=== PATIENT | male | born 1980 | race Caucasian/White ===

== ENCOUNTER 2023-04-13 05:11 | Emergency (ER) | payer MEDICAID, SELFPAY ==
[2023-04-13 05:19] VITALS: BP 119/75; PULSE 54; RESP 16; TEMP 36.6; O2SAT 98; BMI 21.7
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
[2023-04-13] MEDS: lidocaine 1% INJ 10 mL (per mL) 20 ML INJECTION (05:50)
[2023-04-13 06:53] VITALS: BP 115/79; O2SAT 100
[2023-04-13 07:44] VITALS: BP 114/75; O2SAT 100
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
[2023-04-13 08:58] VITALS: BP 112/68; PULSE 88; RESP 18; O2SAT 94
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
== END 2023-04-13 18:11 | disposition home or self-care (01) ==
PROVIDERS: Emergency Provider Family Medicine
DX: S01.312A Laceration without foreign body of left ear, initial encounter (principal); S22.42XA Multiple fractures of ribs, left side, initial encounter for closed fracture; S09.90XA Unspecified injury of head, initial encounter; Y04.2XXA Assault by strike against or bumped into by another person, initial encounter; Y92.143 Cell of prison as the place of occurrence of the external cause
CPT/HCPCS: 12013; 70450; 71101; 72072; 72100; 99284

== ENCOUNTER 2023-05-04 09:20 | Emergency (ER) | payer MEDICAID, SELFPAY ==
[2023-05-04 09:30] VITALS: BP 109/68; PULSE 75; RESP 16; O2SAT 100
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
[2023-05-04 09:41] VITALS: BP 109/68; PULSE 75; RESP 16; O2SAT 100
--- NOTE | 2023-05-11 14:18 | DCPLANNER ---
manager ob was triggered to call patient due to no primary care physician - no number on file.
== END 2023-05-04 09:42 | disposition home or self-care (01) ==
PROVIDERS: Emergency Provider Family Medicine
DX: Z48.02 Encounter for removal of sutures (principal)
CPT/HCPCS: 99283

== ENCOUNTER 2025-09-11 20:19 | Emergency (ER) | payer MEDICAID, SELFPAY ==
[2025-09-11 20:29] VITALS: BP 107/57; PULSE 71; RESP 16; TEMP 36.6; O2SAT 95
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
== END 2025-09-11 23:01 | disposition home or self-care (01) ==
PROVIDERS: Emergency Provider Emergency Medicine
DX: M79.672 Pain in left foot (principal); M79.671 Pain in right foot
CPT/HCPCS: 96372; 99284; J1885